=== PATIENT | male | born 1990 | race Caucasian/White ===

== ENCOUNTER 2016-11-23 16:44 | Emergency (ER) | payer OTHER ==
[~2016-11-23] VITALS: Ht 172.7 cm; Wt 102.5 kg
[~2016-11-23 16:44] MED LIST: AUGMENTIN875 MG PO; NAPROSYN500 MG PO
[2016-11-23 20:25] LABS: EOSINOPHIL (%) 1.3 % (0-5); EOSINOPHIL COUNT 0.1 K/uL (0-0.3); HEMATOCRIT 45.8 % (38.0-50.0); IMMATURE GRANULOCYTE (%) 0.4 % (0.0-0.7); INSTRUMENT ABS NEUTROPHIL CT 4.6 K/uL; LYMPHOCYTE COUNT 3.6 K/uL (1.0-2.8); MCH 25.8 PG (29.0-34.0); MCHC 31.7 G/DL (30.0-36.0); MCV 81.5 FL (86-99); MEAN PLAT.VOLUME 9.3 uM^3 (9.0-12.4); MONOCYTE (%) 8.1 % (3-12); MONOCYTE COUNT 0.7 K/uL (0-0.8); NEUTROPHIL (%) 50.6 % (45-76); NEUTROPHIL COUNT 4.6 K/uL (1.8-6.4); PLATELET COUNT 286 K/uL (156-360); RBC DIS.WIDTH-CV 12.5 % (11.8-14.6); RBC DIS.WIDTH-SD 37.2 % (39-53); RED BLOOD COUNT 5.62 M/uL (4.00-5.50); WHITE BLOOD COUNT 9.1 K/uL (4.1-10.2)
[2016-11-23 20:38] LABS: CHLORIDE 104 mEq/L (99-109); POTASSIUM 3.7 mEq/L (3.7-5.4); SODIUM 141 mEq/L (136-147)
[2016-11-23 20:40] LABS: GLUCOSE 112 mg/dL (70-99)
[2016-11-23 20:41] LABS: ANION GAP 13 MEQ/L (2-14)
[2016-11-23 20:42] LABS: TOTAL BILIRUBIN 0.7 mg/dL (0.0-1.0)
[2016-11-23 20:43] LABS: SERUM ETHYL ALCOHOL < 10 mg/dL
[2016-11-23 20:44] LABS: ALKALINE PHOSPHATASE 75 IU/L (3-129); GFR ESTIMATE (CALCULATED) > 59 mL/min/
[2016-11-23 20:45] LABS: UREA NITROGEN (BUN) 13 mg/dL (9-23)
[2016-11-23] MEDS ORDERED: REMERON15 M2 PO (21:00)
[2016-11-23 21:59] VITALS: BP 142/103
== END 2016-11-23 22:02 | disposition home or self-care (01) ==
LOC: EME 16:44
PROVIDERS: Emergency Medicine
DX: F41.9 Anxiety disorder, unspecified (principal); F33.2 Major depressive disorder, recurrent severe without psychotic features; R44.0 Auditory hallucinations; F12.90 Cannabis use, unspecified, uncomplicated
CPT/HCPCS: 80053; 85025; 90839; 99281; 99284; G0480

== ENCOUNTER 2017-07-02 04:40 | Emergency (ER) | payer OTHER ==
[~2017-07-02] VITALS: Ht 172.7 cm; Wt 104.0 kg
[~2017-07-02 04:40] MED LIST changes: +REMERON15 M2 PO
[2017-07-02] MEDS ORDERED: MOTRIN600 MG PO (05:39)
[2017-07-02] MEDS ORDERED: FLEXERIL10 MG PO (05:39)
[2017-07-02] MEDS ORDERED: LIDODERM 5% P1 PATCH TD (05:39)
[2017-07-02 05:58] VITALS: BP 178/113
== END 2017-07-02 05:59 | disposition home or self-care (01) ==
LOC: EME 04:40
DX: M54.5 Low back pain (principal); G89.29 Other chronic pain; Z88.2 Allergy status to sulfonamides; Z88.1 Allergy status to other antibiotic agents
CPT/HCPCS: 72100; 99281; 99284